=== PATIENT | male | born 1965 | race African-American/Black ===

== ENCOUNTER 2017-04-07 12:56 | Emergency (ER) | payer MEDICAID ==
[~2017-04-07] VITALS: Ht 175.3 cm; Wt 86.6 kg
[2017-04-07 13:02] VITALS: BP 134/82
== END 2017-04-07 15:29 | disposition home or self-care (01) ==
LOC: ED 15:17
DX: K91.840 Postprocedural hemorrhage of a digestive system organ or structure following a digestive system procedure (principal)
CPT/HCPCS: 99282

== ENCOUNTER 2019-02-20 10:32 | Emergency (ER) | payer MEDICAID ==
[~2019-02-20] VITALS: Ht 175.3 cm; Wt 88.0 kg
[2019-02-20 10:49] VITALS: BP 105/80
[2019-02-20] MEDS ORDERED: CEFAZOLIN 1,000 MG IM ONE (11:30)
[2019-02-20 11:40] LABS: BASOPHILS # (AUTO) 0.04 x10^3/uL (0-0.1); BASOPHILS % (AUTO) 1 % (0-1); EOSINOPHILS % (AUTO) 2 % (1-7); LYMPHOCYTES % (AUTO) 31 % (22-44); MD NO; MEAN CORPUSCULAR HEMOGLOBIN 30.3 pg (27.5-34.5); MEAN CORPUSCULAR HGB CONC 32.9 g/dL (33.2-36.2); MEAN PLATELET VOLUME 8.6 fL (7.4-10.4); MONOCYTES # (AUTO) 0.56 x10^3/uL (0.2-0.8); MONOCYTES % (AUTO) 6 % (2-9); NEUTROPHILS # (AUTO) 5.56 x10^3/uL (1.8-6.8); NEUTROPHILS % (AUTO) 60 % (42-75); PLATELET COUNT 232 x10^3/uL (130-400); RED BLOOD COUNT 5.31 x10^6/uL (4.38-5.82); RED CELL DISTRIBUTION WIDTH 13.9 % (9.4-14.8)
[2019-02-20] MEDS ORDERED: CEFAZOLIN 1,000 MG ONE (11:43)
[2019-02-20 11:53] LABS: ALANINE AMINOTRANSFERASE 20 U/L (12-78); ALBUMIN 4.5 g/dL (3.4-5.0); ANION GAP 5 mmol/L (5-15); CALCIUM 9.4 mg/dL (8.5-10.1); CHLORIDE 109 mmol/L (98-107); CREATININE 1.15 mg/dL (0.7-1.3)
[2019-02-20 11:55] LABS: ALKALINE PHOSPHATASE 62 U/L (45-117); BILIRUBIN,TOTAL 0.6 mg/dL (0.2-1.0)
== END 2019-02-20 12:18 | disposition home or self-care (01) ==
LOC: ED 12:12
DX: L24.9 Irritant contact dermatitis, unspecified cause (principal); M25.531 Pain in right wrist; F17.200 Nicotine dependence, unspecified, uncomplicated; Z88.0 Allergy status to penicillin
CPT/HCPCS: 36415; 80053; 85025; 87040; 96372; 99283; J0690

== ENCOUNTER 2019-09-29 12:30 | Emergency (ER) | payer MEDICAID ==
[~2019-09-29] VITALS: Ht 175.3 cm; Wt 93.5 kg
[2019-09-29 12:45] VITALS: BP 145/95
--- NOTE | 2019-09-29 13:06 | NUR ---
PT HERE FOR BODY ACHES/CHILLS FOR 2 DAYS. RESTING ON [place]. KOMAL.
[2019-09-29] MEDS ORDERED: ACETAMINOPHEN 500 MG TABLET ONE (13:10)
[2019-09-29] MEDS ORDERED: IBUPROFEN 200 MG TABLET ONE (13:10)
--- NOTE | 2019-09-29 13:15 | NUR ---
PT MEDICATED PER EMAR.
[2019-09-29 13:26] LABS: RAPID INFLUENZA A POSITIVE (Negative); RAPID INFLUENZA B Negative (Negative)
[2019-09-29] MEDS ORDERED: IBUPROFEN 800 MG TABLET PO ONE (13:30)
[2019-09-29] MEDS ORDERED: ACETAMINOPHEN 500 MG TABLET PO ONE (13:30)
== END 2019-09-29 13:58 | disposition home or self-care (01) ==
LOC: ED 13:52
DX: J10.1 Influenza due to other identified influenza virus with other respiratory manifestations (principal); R51 Headache; M79.10 Myalgia, unspecified site; F17.200 Nicotine dependence, unspecified, uncomplicated
CPT/HCPCS: 71046; 87400; 99284

== ENCOUNTER 2020-12-23 09:42 | Emergency (ER) | payer MEDICAID ==
[~2020-12-23] VITALS: Ht 175.3 cm; Wt 87.0 kg
[2020-12-23 10:13] VITALS: BP 121/89
== END 2020-12-23 10:18 | disposition home or self-care (01) ==
LOC: ED 10:12
DX: K02.9 Dental caries, unspecified (principal); F17.210 Nicotine dependence, cigarettes, uncomplicated
CPT/HCPCS: 99283

== ENCOUNTER 2021-05-02 13:28 | Emergency (ER) | payer MEDICAID ==
[~2021-05-02] VITALS: Ht 175.3 cm; Wt 80.0 kg
[2021-05-02 13:32] VITALS: BP 142/84
--- NOTE | 2021-05-02 13:39 | NUR ---
Note cindi in EDM - 05/02/21 at 1347 by CHRISTIAN WAS INSTRUCTED BY YESENIA SEVERINO, TO CONT ABX FOR 2 MORE DAYS AND IF WOUND NOT GETTING BETTER TO RETURN TO ER FOR RECHECK. PT VERBALIZED UNDERSTANDING. PT LEFT WITHOUT WRITTEN DC INSTRUCTIONS.
--- NOTE | 2021-05-02 13:53 | NUR ---
REVIEWED DC INSTRUCTIONS WITH PT, UNDERSTANDING VERBALIZED. PT LEFT AMB, GAIT STEADY
== END 2021-05-02 13:41 | disposition home or self-care (01) ==
LOC: ED 13:35
DX: U07.1 COVID-19 (principal); J06.9 Acute upper respiratory infection, unspecified; B34.9 Viral infection, unspecified; F17.200 Nicotine dependence, unspecified, uncomplicated
CPT/HCPCS: 99283; U0003; U0005